=== PATIENT | male | born 1940 | race Caucasian/White ===

== ENCOUNTER 2019-12-15 07:30 | Outpatient (CLI) | payer MEDICARE, SELFPAY ==
--- NOTE | ~2019-12-15 | CT_ITS ---
EXAMINATION: CT abdomen pelvis w con INDICATION: Prostate cancer TECHNIQUE: Computed tomographic images of the abdomen and pelvis were obtained after the administrati on of 100 cc of Omnipaque 350 intravenous contrast. The dose-length product (DLP) was 600.93 mGy-cm. Automated exposure control and iterative reconstruction technique were employed. COMPARISON: None available FINDINGS: Minimal dependent atelectasis is present in the lung bases. The heart size is normal. The g allbladder is surgically absent. There is mild enlargement of the common bile duct and central intrah epatic ducts which is likely due to post cholecystectomy state. Cysts of the liver measure up to 3.0 cm in the left hepatic lobe. The spleen, pancreas, and adrenal glands are normal. Hypoattenuating les ions in the kidneys, measuring up to 5 mm in the left kidney, are too small to characterize but likel y represent cysts. There are increase in number of retroperitoneal lymph nodes which are borderline i n size measuring up to 10 mm. There is no free intraperitoneal gas or evidence of bowel obstruction. Colonic diverticulosis is present without evidence of diverticulitis. There is severe lumbar spondylo sis. There are hemangiomas of the L1 and L4 vertebral bodies. There is anterior fusion of L1-L3. Mild circumferential thickening of the urinary bladder likely reflects chronic outlet obstruction. IMPRESSION: 1. Increase in number of borderline size retroperitoneal lymph nodes. Reviewed, dictated and finalized at location B.
--- NOTE | ~2019-12-15 | NM_ITS ---
EXAMINATION: NM bone scan whole body DATE: 12/15/2019 11:57 INDICATION: Prostate cancer TECHNIQUE: 26.481 mCi Tc-99m HDP was administered intravenously. Delayed whole-body scintigrams were obtained. COMPARISON: Chest radiograph and CT abdomen and pelvis dated 12/15/2019 FINDINGS: There are scattered periventricular foci of moderate to intense bone uptake, many and atypical positi ons including at the distal left fibula, proximal right femoral diaphysis, intertrochanteric region o f the left femur, the right innominate bone and left scapula which are suspicious for metastatic dise ase. There appears be associated sclerosis and periosteal reaction at the left coracoid process on th e chest radiograph and there is subtle patchy sclerosis and periosteal reaction along the left innomi zofia bone. There are few additional foci of increased uptake along the spine, unclear whether this re presents additional metastatic disease or activity related to severe spondylosis is evident on both r adiographs and CT. Increased uptake at the right carpus, medial compartment of the left knee at the r ight forefoot and more typical pattern of degenerative osteoarthritis. IMPRESSION: 1. Multiple scattered foci of increased bone uptake in atypical locations, several with coarse chroni c subtle sclerotic lesions or periosteal reaction, consistent with metastatic disease. Reviewed, dictated and finalized at location A. IMPRESSION: 1. Multiple scattered foci of increased bone uptake in atypical locations, wai ral with coarse chronic subtle sclerotic lesions or periosteal reaction, consis tent with metastatic disease.
--- NOTE | ~2019-12-15 | XR_ITS ---
EXAMINATION: XR chest 2V DATE: 12/15/2019 08:04 INDICATION: Prostate cancer TECHNIQUE: PA and lateral views of the chest are obtained. COMPARISON: 07/28/2016, 02/03/2016 FINDINGS: The lungs are free of acute opacities. There is no pleural effusion or pneumothorax. Median sternotomy wires and mediastinal surgical clips are seen, likely from prior coronary artery bypass g rafting. The heart size is normal. There is moderate thoracic spondylosis. Surgical clips in the righ t upper quadrant are likely from prior cholecystectomy. IMPRESSION: 1. No acute cardiopulmonary abnormality. Reviewed, dictated and finalized at location B.
[2019-12-15 08:18] LABS: Estimated Glomerular Filt Rate > 60
== END 2019-12-15 07:31 | disposition home or self-care (01) ==
PROVIDERS: PCP Internal Medicine; Visit Provider Urology
DX: C61 Malignant neoplasm of prostate (principal); M89.9 Disorder of bone, unspecified; R59.0 Localized enlarged lymph nodes
CPT/HCPCS: 36415; 71046; 74177; 78306; A9561; Q9967

== ENCOUNTER 2020-12-04 09:34 | Outpatient (CLI) | payer MEDICARE, SELFPAY ==
--- NOTE | ~2020-12-04 | NM_ITS ---
EXAMINATION: NM bone scan whole body DATE: 12/04/2020 13:40 INDICATION: Prostate cancer TECHNIQUE: 26.4 mCi Tc-99m HDP was administered intravenously. Delayed whole-body scintigrams were o btained. COMPARISON: CT abdomen and pelvis dated 12/04/2020 FINDINGS: There are multiple foci of increased FDG bone uptake in atypical locations including several with cor responding sclerosis on the prior CT suspicious for metastatic disease. The latter include at the int ertrochanteric proximal left femur, bilateral iliac wings, left more prominent than right and at the right side of the cervical halo. Additional suspicious lesions not included within the field of CT im aging include at the proximal right femoral diaphysis, right coracoid process and distal left fibular diaphysis. 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 Additional li antelmo degenerative uptake at the bilateral acromioclavicular joints, at the right elbow and and at bot h knees most prominent at the medial compartment of the left knee. IMPRESSION: 1. Multiple foci of increased uptake, some likely degenerative in etiology but several with correspon ding suspicious sclerotic lesions on CT consistent with metastatic prostate cancer. Reviewed, dictated and finalized at location B. IMPRESSION: 1. Multiple foci of increased uptake, some likely degenerative in etiology but several with corresponding suspicious sclerotic lesions on CT consistent with m etastatic prostate cancer.
--- NOTE | ~2020-12-04 | CT_ITS ---
EXAMINATION: CT abdomen pelvis w con DATE: 12/04/2020 10:15 INDICATION: Prostate cancer TECHNIQUE: Computed tomography (CT) of the abdomen and pelvis was performed with 100 mL Omnipaque-350 intravenous contrast. Automated exposure control and iterative reconstruction technique were employe d. The dose-length product was 803.55 mGy-cm. COMPARISON: None FINDINGS: Mild bronchiectasis and minimal dependent atelectasis in the bilateral lower lobes. Heart size is nor mal. Atherosclerotic coronary artery calcification. Median sternotomy wires and changes of prior shanique nary artery bypass grafting. No pericardial or pleural effusion. Multiple well-defined low-attenuatio n hepatic cysts the largest measuring 2.9 cm in the left hepatic lobe. Cholecystectomy clips the gall bladder fossa. Spleen, pancreas, bilateral adrenal glands and right kidney are normal. 4 mm matter lo w-attenuation cyst at the lower pole of the left kidney. There is mild colonic diverticulosis with a sigmoid predominance. There is no adjacent inflammatory change to suggest diverticulitis. No abnorma l bowel wall thickening or obstruction. Bladder is normal. No free intraperitoneal gas or fluid. Decr ease in size of the previous and mildly prominent abdominal retroperitoneal lymph nodes. No pathologi miller enlarged abdominal or pelvic lymphadenopathy. Small bilateral fat-containing inguinal hernias. Severe lumbar and lower thoracic spondylosis including anterior fusion at L1-L3.. Lucent hemangiomas with thickened internal trabecula at L1 and L4. There are multiple suspicious sclerotic lesions in th e bilateral iliac bones as well as at the cephalad aspect of the right sacral ala and intertrochanter ic left femur which are concerning for metastatic prostate cancer. IMPRESSION: 1. Several sclerotic bone lesions in the pelvis and proximal left femur suspicious for metastatic pro state cancer. 2. Mild diverticulosis. 3. Small bilateral fat-containing inguinal hernias. Reviewed, dictated and finalized at location B. IMPRESSION: 1. Several sclerotic bone lesions in the pelvis and proximal left femur suspici ous for metastatic prostate cancer. 2. Mild diverticulosis. 3. Small bilateral fat-containing inguinal hernias.
[2020-12-04 10:09] LABS: Estimated Glomerular Filt Rate > 60
== END 2020-12-04 09:35 | disposition home or self-care (01) ==
PROVIDERS: PCP Internal Medicine; Visit Provider Urology
DX: C61 Malignant neoplasm of prostate (principal); K57.30 Diverticulosis of large intestine without perforation or abscess without bleeding; K40.20 Bilateral inguinal hernia, without obstruction or gangrene, not specified as recurrent
CPT/HCPCS: 74177; 78306; A9561; Q9967

== ENCOUNTER 2022-06-19 14:08 | Emergency (ER) | payer MEDICARE, SELFPAY ==
--- NOTE | ~2022-06-19 | XR_ITS ---
EXAMINATION: XR chest 2V DATE: 06/19/2022 14:44 INDICATION: Cough. TECHNIQUE: Frontal and lateral views of the chest were obtained. COMPARISON: Chest 2 views 12/15/2019 FINDINGS: The chest demonstrates clear lungs without pneumonia, pleural effusion, or pneumothorax. Th e heart size is normal. Median sternotomy wires and mediastinal surgical clips are seen, likely from prior coronary artery bypass grafting. IMPRESSION: 1. No acute cardiopulmonary disease. Reviewed, dictated and finalized at location A.
[2022-06-19 14:17] VITALS: BP 142/68; PULSE 65; RESP 18; TEMP 36.5; O2SAT 99
--- NOTE | 2022-06-19 14:19 | ED.URI ---
HPI - URI/Sore Throat General Chief Complaint: Upper Respiratory Infection Stated Complaint: COUGH Time Seen by Provider: 06/19/22 14:14 Source: patient and RN notes reviewed Mode of arrival: ambulatory Limitations: no limitations History of Present Illness HPI Narrative: 82-year-old male presents to the [facility] with complaints of a cough for 1 week. No treatment prior to arrival. Patient denies any shortness of breath. Reports that when he does cough he has a burning sensation in his throat and after sternum area. Denies any chest pain. No fevers. Denies abdominal pain, nausea or vomiting. Has a history of postnasal drip. Has a history of allergies. Denies treatment prior to arrival MD elicited complaint: cough Related Data Home Medications Medication Instructions Recorded Confirmed aspirin 81 mg tablet,delayed 81 mg PO DAILY 09/09/19 06/19/22 release metoprolol tartrate 25 mg tablet 25 mg PO DAILY 09/09/19 06/19/22 multivitamin 1 tablet PO DAILY 09/09/19 06/19/22 omega-3 fatty acids 1,000 mg 1,000 mg PO DAILY 09/09/19 06/19/22 capsule (Fish Oil Concentrate) omeprazole 20 mg capsule,delayed 20 mg PO DAILY 09/09/19 06/19/22 release abiraterone 250 mg tablet 250 mg PO USEASDIRECTD 06/19/22 06/19/22 celecoxib 200 mg capsule 200 mg PO DAILY 06/19/22 06/19/22 cyclosporine 0.05 % eye drops in a 1 drp EACH EYE BID 06/19/22 06/19/22 dropperette (Restasis) furosemide 20 mg tablet 20 mg PO DAILY 06/19/22 06/19/22 leuprolide acetate (6 month) 45 mg See Rx Instructions .Route .COMPLEX 06/19/22 06/19/22 (6 month) subcutaneous syringe (Eligard) melatonin 5 mg capsule 5 mg PO DAILY 06/19/22 06/19/22 niacin 750 mg tablet,extended 750 mg PO HS 06/19/22 06/19/22 release (Endur-Acin) prednisone 5 mg tablet 5 mg PO DAILY 06/19/22 06/19/22 Allergies Allergy/AdvReac Type Severity Reaction Status Date / Time Trjekrv-PHQ-BnC Reductase Allergy Unknown Unknown Verified 06/19/22 14:15 Inhibitor [Dexymiv-Fwn-Dmk Reductase Inhibitor] Review of Systems Review of Systems: All systems reviewed & are unremarkable except as noted in HPI and below Constitutional: Constitutional: Reports no additional constitutional complaints, Denies chills and Denies fever(s) Eyes: Eyes: Reports no additional eye complaints ENT: Reports system reviewed and no additional complaints, except as documented Cardiovascular: Cardiovascular: Reports no additional cardiovascular complaints Respiratory: Respiratory: Reports as per HPI, Denies chest congestion, Reports cough, Denies dyspnea and Denies wheezing Gastrointestinal: Gastrointestinal: Reports no additional gastrointestinal complaints Musculoskeletal: Musculoskeletal: Reports no additional musculoskeletal complaints Integumentary/Breasts: Skin/Breast: Reports system reviewed and no additional complaints, except as docu Neurologic: Reports system reviewed and no additional complaints, except as documented Psychiatric: Psychiatric: Reports no additional psychiatric complaints Allergic/Immunologic: Allergic/Immunologic: Reports no additional allergic/immunologic complaints PMFSH Past Medical History Medical History Arthritis Avulsion fracture of ankle Dizziness Heart attack Olecranon bursitis, left elbow Skin cancer Vision loss Surgical History Surgical History H/O heart artery stent Family History Family History Other Heart disease Social History Social History Smoking status: Never smoker Alcohol intake: current Substance use: unknown Gender identity (if verbalized by the patient): Male Spiritual care concerns: No Comments At the time of my signature, I reviewed and agree with the nursing past medical, surgical, social,
[2022-06-19 14:26] VITALS: BP 142/68; PULSE 65; RESP 18; TEMP 36.5; O2SAT 99
== END 2022-06-19 15:16 | disposition home or self-care (01) ==
PROVIDERS: Emergency Provider Nurse Practitioner
DX: J40 Bronchitis, not specified as acute or chronic (principal); M19.90 Unspecified osteoarthritis, unspecified site; I25.2 Old myocardial infarction; Z85.828 Personal history of other malignant neoplasm of skin; Z79.82 Long term (current) use of aspirin
CPT/HCPCS: 71046; 99213; G0463

== ENCOUNTER 2022-07-01 11:03 | Outpatient (CLI) | payer MEDICARE, SELFPAY ==
[2022-07-01 19:42] LABS: Alanine Aminotransferase 27 U/L (6-50); Albumin Level 4.2 g/dL (3.5-5.1); Alkaline Phosphatase 109 U/L (38-126); Anion Gap 10 mmol/L (8-16); Aspartate Amino Transferase 32 U/L (17-59); Blood Urea Nitrogen 28 mg/dL (9-20); Calcium 8.9 mg/dL (8.4-10.2); Carbon Dioxide 24 mmol/L (22-30); Chloride 104 mmol/L (98-107); Cholesterol 190 mg/dL (0-200); Estimated Glomerular Filt Rate > 60; Glucose 107 mg/dL (65-110); HDL Direct 48 mg/dL; Potassium 4.2 mmol/L (3.4-5.0); Sodium 138 mmol/L (137-145); Triglycerides 366 mg/dL (<150)
[2022-07-01 21:40] LABS: LDL Cholesterol Direct < 30 mg/dL
== END 2022-07-01 11:04 | disposition home or self-care (01) ==
LOC: ANHGOSHLAB 11:05
PROVIDERS: PCP Family Medicine; Visit Provider Family Medicine
DX: E78.5 Hyperlipidemia, unspecified (principal); Z13.228 Encounter for screening for other metabolic disorders
CPT/HCPCS: 36415; 80053; 80061

== ENCOUNTER 2022-09-01 13:17 | Outpatient (CLI) | payer MEDICARE, SELFPAY ==
--- NOTE | ~2022-09-01 | DEXA_ITS ---
Bone Density Report Name: EVELIA CARTY Age: 82 Sex: Male Ethnicity: White Date of : 1940 Indication: screening for osteoporosis; height loss; history of glucocorticoids; prior fracture; cancer; Referring Provider: GERONIMO COOPER Study: Bone densitometry was performed. Exam Date: September 01, 2022 Accession number: [id number] Bone Density: Region BMD T-score Z-score Classification AP Spine(L1-L4) 1.216 1.1 2.4 Normal Femoral Neck (Left) 0.629 -2.2 -0.5 Osteopenia Total Hip (Left) 0.790 -1.6 -0.4 Osteopenia World Health Organization criteria for BMD impression classify patients as: Normal (T-score at or above -1.0), Osteopenia (T-score between -1.0 and -2.5), or Osteoporosis (T-score at or below -2.5). 10-year Fracture Risk: FRAX not reported because: Prior hip or vertebral fracture Clinical Information Provided by Patient: Have had a previous hip or vertebral fracture Has had a low trauma fracture Has taken Glucocorticoids Has the following medical conditions: Cancer Patient maximum height was 72 Impression: The patient has low bone mass, based on the Left Femoral Neck T-score. The patient has risk factors, including: previous fracture, history of glucocorticoid therapy. Discussion: INCREASED RISK OF FRACTURE DUE TO HISTORY OF LOW TRAUMA FRACTURE. The patient's previous fracture puts the patient at high risk of a future fracture. In untreated patients, the risk of osteoporotic fracture increases approximately two-fold for each 1.0 SD decrease in T-score. Low bone density is not the only risk factor for fracture; also consider factors such as patient's age, frailty or poor health, risk of falling, risk of injury, previous osteoporotic fracture, family history of osteoporosis, cigarette smoking, low body weight, etc. Not everyone with a low trauma fracture has osteoporosis; osteomalacia and other metabolic bone disorders should also be considered. Patients who have osteoporosis should be evaluated for specific diseases and conditions (secondary causes) that may cause or contribute to bone loss and fracture risk. National Osteoporosis Foundation (NOF) recommends pharmacologic intervention for patients with a prior low trauma hip or vertebral fracture regardless of BMD T-score. The patient should follow a healthful lifestyle (good nutrition with adequate calcium and vitamin D, and appropriate weight-bearing exercise). Follow-Up: Consider a repeat BMD and Vertebral Fracture Assessment (VFA) exam in 2 years or sooner if medically necessary, to reassess this patient's status. Reported by: OPAL on 09/01/2022 2:03:00 PM. Reviewed, dictated and finalized at location AXiomara HARPER
== END 2022-09-01 13:18 | disposition home or self-care (01) ==
LOC: ANHIMG 13:20
PROVIDERS: PCP Family Medicine; Visit Provider Urology
DX: C61 Malignant neoplasm of prostate (principal); M85.852 Other specified disorders of bone density and structure, left thigh
CPT/HCPCS: 77080

== ENCOUNTER 2022-12-01 11:49 | Outpatient (CLI) | payer MEDICARE, SELFPAY ==
--- NOTE | ~2022-12-01 | PE_ITS ---
EXAMINATION: PET_PETPSMAST_PT DATE: 12/01/2022 14:40 INDICATION: Rising PSA levels after treatment for malignant prostate cancer. TECHNIQUE: 9.924 mCi of pipflufolastat F-18 (18-F-DCFPyL) was administered i.v. Low dose computed to mography (CT) images were acquired from the base of the brain to the base of the brain to the proxima l thighs for attenuation correction and anatomic localization. Positron emission tomography (PET) sanjay ges were acquired in the same distribution beginning 1 hour and 45 minutes after injection. Images in cluding fused PET/CT images were reconstructed in axial, coronal, and sagittal planes. Automated expo sure control technique was employed. The dose-length product was 580.45mGy-cm. COMPARISON: CT abdomen pelvis dated 12/04/2020 FINDINGS: Head/neck: Typical pattern of symmetric physiologic increased activity in the lacrimal, parotid and submandibula r glands as well as along the mucosa of the nasal and oral cavities, the lupillo-, naso- and hypopharynx. Approximately 1 cm focus of increased FDG uptake with maximal SUV of 13.2 within the right masseter muscle without radiologic correlate. No pathologically enlarged cervical lymphadenopathy or other mikaela picious foci of increased uptake in the visualized head or neck. Chest: Lungs are clear with no pulmonary nodules, pneumonia, pulmonary edema or pleural effusion. Heart size is normal. Atherosclerotic coronary artery calcification unchanged prior median sternotomy and coron jessica artery bypass grafting. No pericardial effusion. Ectatic ascending thoracic aorta measuring up to 4.3 cm in maximal diameter. No pathologically enlarged 0r PSMA avid thoracic lymphadenopathy. Expans ile FDG avid lytic lesion filling the right coracoid process with maximal severe 50.4. T4 and T6 benedicto ngiomas. Small focus of mild PSMA uptake associated with a small sclerotic lesion at the posterolater al left fifth rib. Additional similar small subtle focus of minimal uptake with maximal SUV of 1.6 at the anterolateral left third rib without radiologic correlate. Abdomen/pelvis/proximal thighs: Physiologic renal accumulation and excretion of activity in the kidneys, bladder and along portions o f ureters. Normal degree and slightly heterogenous pattern of increased uptake throughout the liver w ithout radiologic correlate or dominant PSMA avid lesion. Typical mild diffuse uptake throughout the spleen but with 2 approximately 1 cm foci of more prominent activity with maximal SUV of 8.8 and 6.9 which are without radiologic correlate on CT imaging. Cholecystectomy clips at the gallbladder fossa. The pancreas and bilateral adrenal glands are normal. Moderate uptake scattered throughout the bowel s with typical duodenal and proximal jejeunal predominance and without radiologic correlate, also lik segundo physiologic. No other abnormal foci of increased uptake or pathologically enlarged lymphadenopath y in the abdomen, pelvis or proximal thighs. There is streak artifact in the pelvis surrounding a rig ht total hip arthroplasty. L1 and L4 hemangiomas. Mild uptake at the right at L2 with maximal SUV of 3.9 which is without radiologic correlate on CT. Asymmetric increased uptake at the left iliac wing w ith maximal SUV of 7.5 and with corresponding patchy sclerosis on CT imaging. There is additional mil d uptake at the right sacral ala along the anterolateral margin of the right S1 neural foramen with m aximal SUV of 2.3 and at the proximal femurs on the left at the posterior junction of the neck and gr eater trochanter with maximal SUV of 4.4 and on the right lung the anterior margin of the tip of the femoral component with maximal SUV of 3.0. Each of these bone lesions demonstrates corresponding incr eased uptake on the prior bone scan suspicious for metastatic disease. IMPRESSION: 1. Increased uptake associated with multiple bone lesions which appear to have been present and descr
== END 2022-12-01 11:50 | disposition home or self-care (01) ==
PROVIDERS: PCP Family Medicine; Visit Provider Nurse Practitioner Adult Health
DX: R97.21 Rising PSA following treatment for malignant neoplasm of prostate (principal)
CPT/HCPCS: 78815; A9595

== ENCOUNTER 2023-07-21 08:12 | Outpatient (CLI) | payer MEDICARE, SELFPAY ==
[2023-07-21 18:37] LABS: Alanine Aminotransferase 24 U/L (6-50); Albumin Level 3.8 g/dL (3.5-5.1); Alkaline Phosphatase 57 U/L (38-126); Anion Gap 1 mmol/L (8-16); Aspartate Amino Transferase 50 U/L (17-59); Blood Urea Nitrogen 18 mg/dL (9-20); Calcium 8.9 mg/dL (8.4-10.2); Carbon Dioxide 34 mmol/L (22-30); Chloride 105 mmol/L (98-107); Cholesterol 160 mg/dL (0-200); Estimated Glomerular Filt Rate > 60; Glucose 100 mg/dL (65-110); HDL Direct 43 mg/dL; Potassium 3.6 mmol/L (3.4-5.0); Sodium 140 mmol/L (137-145); Triglycerides 240 mg/dL (<150)
[2023-07-21 18:48] LABS: LDL Cholesterol Direct 32 mg/dL
[2023-07-21 19:58] LABS: Hematocrit 42.9 % (42.0-52.0); Hemoglobin 13.6 g/dL (14.0-18.0); Immature Platelet Fraction Pct 10.3 % (0.9-11.2); Mean Corpuscular HGB Conc 31.7 g/dl (32-36); Mean Corpuscular Hemoglobin 30.4 pg (26-34); Mean Platelet Volume 11.5 fl (7.4-10.4); Platelet Count Result 91 k/mm3 (150-375); Red Blood Count 4.47 M/mm3 (4.6-6.20); Red Cell Distribution Width 14.2 % (11.5-14.5); White Blood Count 3.1 K/mm3 (4.5-10.0)
[2023-07-21 20:26] LABS: Total Cells Counted 100
[2023-07-21 20:27] LABS: Band Neutrophils Percent 3 % (0-6); Eosinophils Absolute Manual 0.03 K/mm3 (0.02-0.5); Eosinophils Percent Manual 1 % (0-4); Lymphocytes Absolute Manual 1.17 K/mm3 (1.1-4.5); Lymphocytes Percent Manual 38 % (18-44); Metamyelocytes Percent 2 %; Monocytes Absolute Manual 0.12 K/mm3 (0.1-0.90); Monocytes Percent Manual 4 % (3-9); Neutrophils Percent Manual 52 % (46-73); Smudge Cells FEW
[2023-07-21 20:28] LABS: Atypical Lymphocytes Present; Platelet Estimate Decreased (Adequate); Schistocytes None Seen (NORMAL)
== END 2023-07-21 08:13 | disposition home or self-care (01) ==
LOC: ANHGOSHLAB 08:13
PROVIDERS: PCP Family Medicine; Visit Provider Family Medicine
DX: E78.2 Mixed hyperlipidemia (principal); Z13.220 Encounter for screening for lipoid disorders; Z13.228 Encounter for screening for other metabolic disorders; R53.83 Other fatigue
CPT/HCPCS: 36415; 80053; 80061; 85025; 85055

== ENCOUNTER 2024-02-21 08:44 | Emergency (ER) | payer MEDICARE, SELFPAY ==
--- NOTE | 2024-02-21 08:47 | ED.GENADULT ---
HPI - General Adult General Chief complaint: Upper Respiratory Infection Stated complaint: NASAL CONGESTION/COUGH/TICKLE IN BACK OF MOUTH Time Seen by Provider: 02/21/24 08:47 Source: patient Mode of arrival: ambulatory Limitations: no limitations History of Present Illness HPI narrative: 83-year-old male patient presents to the [facility] with complaints of cold symptoms x4 days. Patient states that he has had some watery eyes sometimes itching eyes and redness to the eyes. Patient states he has had a lot of drainage to the back of the throat, congestion and runny nose. Patient states slight cough but more so when he lays down at night. Denies any ear pain, sore throat. Denies chest pain, shortness of breath. Denies abdominal pain, nausea, vomiting or diarrhea. Denies fevers or body aches or chills. Patient states he has taken some [id number] Tylenol and mucus next 1 or 2 times since symptoms began. Patient states he does take Claritin daily. Related Data Home Medications Medication Instructions Recorded Confirmed aspirin 81 mg tablet,delayed 81 mg PO DAILY 09/09/19 02/21/24 release multivitamin 1 tablet PO DAILY 09/09/19 02/21/24 omega-3 fatty acids 1,000 mg 1,000 mg PO DAILY 09/09/19 02/21/24 capsule (Fish Oil Concentrate) abiraterone 250 mg tablet 250 mg PO USEASDIRECTD 06/19/22 02/21/24 melatonin 5 mg capsule 5 mg PO DAILY 06/19/22 02/21/24 niacin 750 mg tablet,extended 750 mg PO HS 06/19/22 02/21/24 release (Endur-Acin) prednisone 5 mg tablet 5 mg PO DAILY 06/19/22 02/21/24 leuprolide acetate (6 month) 45 mg See Rx Instructions .Route .COMPLEX 11/11/22 02/21/24 (6 month) subcutaneous syringe (Camera360) isosorbide mononitrate 60 mg 60 mg PO DAILY 10/30/23 02/21/24 tablet,extended release 24 hr metoprolol tartrate 25 mg tablet 50 mg PO DAILY 10/30/23 02/21/24 latanoprost 0.005 % eye drops 1 drp EACH EYE DAILY 11/10/23 02/21/24 Allergies Allergy/AdvReac Type Severity Reaction Status Date / Time Xjgirki-CSA-DlI Reductase Allergy Unknown Unknown Verified 02/21/24 08:57 Inhibitor [Codziwy-Obo-Phg Reductase Inhibitor] Review of Systems Review of Systems: CONSTITUTIONAL: Denies fever, chills, or sweats. EYES: Denies visual changes, redness, or discharge. ENT: Positive rhinorrhea, congestion, denies sore throat, or otalgia. CARDIOVASCULAR: Denies chest pain, palpitations, or edema. RESPIRATORY: positive mild cough denies dyspnea. GASTROINTESTINAL: Denies abdominal pain, nausea, vomiting, or diarrhea. GENITOURINARY: Denies dysuria or hematuria. SKIN: Denies rash or itching. MUSCULOSKELETAL: Denies back pain, joint pain, or myalgia. NEUROLOGIC: Denies headache, numbness, or weakness. PSYCHIATRIC: Denies anxiety or depression. [facility] Past Medical History Medical History Arthritis Avulsion fracture of ankle CAD (coronary artery disease) Dizziness Heart attack IBS (irritable bowel syndrome) Olecranon bursitis, left elbow Prostate cancer Skin cancer Vision loss Surgical History Surgical History H/O heart artery stent (~2001) History of cholecystectomy (~2009) History of hip replacement (~10/2021) Hx of tonsillectomy (Unknown) Family History Family History Sibling Cancer Heart disease Mother Heart disease Father Heart disease Social History Social History Smoking status: Never smoker Alcohol intake: current Substance use: unknown Living arrangements: with family Additional living arrangements comments: Spouse Occupation/Education: retired Gender identity (if verbalized by the patient): Male Spiritual care concerns: No Comments At the time of my signature I agree with nursing past medical history, surgical, social, and
[2024-02-21 09:01] VITALS: BP 107/63; PULSE 67; RESP 18; TEMP 36.8; O2SAT 98
== END 2024-02-21 09:19 | disposition home or self-care (01) ==
PROVIDERS: Emergency Provider Nurse Practitioner Family; PCP Family Medicine
DX: T78.40XA Allergy, unspecified, initial encounter (principal); M19.90 Unspecified osteoarthritis, unspecified site; I25.10 Atherosclerotic heart disease of native coronary artery without angina pectoris; I25.2 Old myocardial infarction; Z85.828 Personal history of other malignant neoplasm of skin; Z85.46 Personal history of malignant neoplasm of prostate; Z95.5 Presence of coronary angioplasty implant and graft; Z79.82 Long term (current) use of aspirin
CPT/HCPCS: 99213; G0463

== ENCOUNTER 2024-03-11 07:25 | Outpatient (CLI) | payer MEDICARE, SELFPAY ==
--- NOTE | ~2024-03-11 | PE_ITS ---
EXAMINATION: PET_PETPSMAST_PT DATE: 03/11/2024 09:47 INDICATION: Prostate cancer TECHNIQUE: 5.559 mCi of Locametz Ga-68(88-Rl-shellmzgzi) was administered i.v. Low dose computed jeremy ography (CT) images were acquired from the base of the brain to the base of the brain to the proximal thighs for attenuation correction and anatomic localization. Positron emission tomography (PET) imag es were acquired in the same distribution beginning 78 minutes after injection. Images including fuse d PET/CT images were reconstructed in axial, coronal, and sagittal planes. Automated exposure control technique was employed. The dose-length product was 1052.07mGy-cm. COMPARISON: 12/01/2022 FINDINGS: Head/neck: Typical pattern of symmetric physiologic increased activity in the lacrimal, parotid and submandibula r glands as well as along the mucosa of the nasal and oral cavities, pharynx and hypopharynx. No path ologically enlarged cervical lymphadenopathy or suspicious foci of increased uptake in the visualized head or neck. Chest: Mild dependent atelectasis in the lungs. No suspicious pulmonary nodules, pneumonia or pleural effusi on. Mild cardiomegaly. Atherosclerotic coronary artery calcification. Status post median sternotomy a nd coronary artery bypass grafting. Thoracic aorta is normal in caliber. No pathologically enlarged o r PSMA avid thoracic lymphadenopathy. Abdomen/pelvis/proximal thighs: Physiologic renal accumulation and excretion of activity in the kidneys, bladder and along portions o f ureters. No evident activity in the region of the mildly enlarged prostate which measures 4.1 x 3.3 cm. The deep pelvis including the region of the bladder and prostate is however partially obscured b y dense metallic streak artifact from a right total hip arthroplasty. Cholecystectomy clips the gallb ladder fossa. Photopenic defects associated with a few low density hepatic cysts the largest in the l eft hepatic lobe measuring 3 cm. Normal degree and slightly heterogenous pattern of increased uptake throughout the liver without radiologic correlate or dominant PSMA avid lesion. The 2 foci of increas ed PSMA uptake previously seen in the spleen have markedly decreased, now barely discernible above th e splenic background consistent with response to treatment of metastatic disease. The pancreas and bi lateral adrenal glands are normal. Moderate uptake scattered throughout the bowels with typical duode nal and proximal jejunal predominance and without radiologic correlate, also likely physiologic. No o ther abnormal foci of increased uptake or pathologically enlarged lymphadenopathy in the abdomen, pel vis or proximal thighs. Musculoskeletal: Severe spondylosis in the cervical, thoracic and lumbar spine. There are multiple lucent hemangiomas with thickened internal trabecula patterns involving multiple thoracic and lumbar vertebra which are all without abnormal PSMA uptake. Interval increase in size and amount of osteolysis associated with a a previously 5.8 x 2.7 x 3.0 cm PSMA avid expansile osteolytic mass arising from the right coracoid process which currently measures 6.3 x 4.4 x 4.3 cm expansile. The degree of PSMA uptake is decrease d slightly with decrease in the maximal SUV from 50.4 to 33.2. This is increased in size The prior mi ld FDG uptake associated with a small sclerotic lesion in the posterior left fifth rib has resolved c onsistent with likely response to treatment of metastatic disease. Aside from the region of PSMA avid and expansile lytic lesion at the right coracoid process there are no other suspicious lytic, blasti c or PSMA avid bone lesions. IMPRESSION: 1. Likely mixed response to treatment of metastatic prostate cancer with increased in size and progre ssive osteolysis but slight decrease in still relatively prominent PSMA uptake associated with an exp ansile osteolytic mass at the right coracoid process and with significa
== END 2024-03-11 07:26 | disposition home or self-care (01) ==
PROVIDERS: PCP Family Medicine; Visit Provider Urology
DX: C61 Malignant neoplasm of prostate (principal)
CPT/HCPCS: 78815; A9596

== ENCOUNTER 2024-04-19 09:01 | Outpatient (CLI) | payer MEDICARE, SELFPAY ==
--- NOTE | ~2024-04-19 | CT_ITS ---
CT sinus wo con Ordering provider: Joselito Ocampo M.D. History: . acute recurrent sinusitis . Comparison: None. Technique: Thin slice Scans CT of the paranasal sinuses was performed with coronal and sagittal refor matted images. No IV contrast. . Automated exposure control and iterative reconstruction technique w ere employed. The dose-length product was 303.09 mGy-cm. Findings: NASAL SEPTUM: Mild right nasal septal deviation. OSTEOMEATAL UNITS: Obliterated bilaterally. NASAL TURBINATES AND NASOPHARYNX: Normal. Bilateral risa bullosa. PARANASAL SINUSES: Bilateral maxillary sinus disease. Left sphenoid sinus disease. VISUALIZED MASTOIDS: Normal as visualized. BONES: Normal. SUPERFICIAL SOFT TISSUES/VISUALIZED BRAIN PARENCHYMA: Normal. IMPRESSION: Bilateral maxillary sinus disease. Left sphenoid sinus disease. Obliterated both ostiomeatal complexe s. Mild right nasal. Reviewed, dictated and finalized at location A. IMPRESSION: Bilateral maxillary sinus disease. Left sphenoid sinus disease. Obliterated bot h ostiomeatal complexes. Mild right nasal.
== END 2024-04-19 09:02 | disposition home or self-care (01) ==
PROVIDERS: PCP Family Medicine; Visit Provider Otolaryngology
DX: J32.9 Chronic sinusitis, unspecified (principal)
CPT/HCPCS: 70486

== ENCOUNTER 2024-05-05 07:58 | Outpatient (CLI) | payer MEDICARE, SELFPAY ==
[2024-05-05 13:27] LABS: Hematocrit 41.8 % (42.0-52.0); Hemoglobin 13.3 g/dL (14.0-18.0); Immature Platelet Fraction Pct 8.8 % (0.9-11.2); Mean Corpuscular HGB Conc 31.8 g/dl (32-36); Mean Corpuscular Hemoglobin 30.9 pg (26-34); Mean Platelet Volume 11.4 fl (7.4-10.4); Platelet Count Result 86 k/mm3 (150-375); Red Blood Count 4.31 M/mm3 (4.6-6.20); Red Cell Distribution Width 14.6 % (11.5-14.5); White Blood Count 3.9 K/mm3 (4.5-10.0)
[2024-05-05 13:54] LABS: Alanine Aminotransferase 24 U/L (6-50); Albumin Level 3.9 g/dL (3.5-5.1); Alkaline Phosphatase 74 U/L (38-126); Anion Gap 9 mmol/L (4-12); Aspartate Amino Transferase 67 U/L (17-59); Bilirubin,Total 0.9 mg/dL (0.2-1.3); Blood Urea Nitrogen 17 mg/dL (9-20); Calcium 8.8 mg/dL (8.4-10.2); Carbon Dioxide 29 mmol/L (22-30); Chloride 103 mmol/L (98-107); Cholesterol 132 mg/dL (0-200); Estimated Glomerular Filt Rate > 60; Glucose 97 mg/dL (65-110); HDL Direct 45 mg/dL; Potassium 3.5 mmol/L (3.4-5.0); Sodium 141 mmol/L (137-145); Triglycerides 166 mg/dL (<150)
[2024-05-05 14:08] LABS: LDL Cholesterol Direct < 30 mg/dL
[2024-05-05 14:13] LABS: Band Neutrophils Percent 1 % (0-6); Eosinophils Absolute Manual 0.03 K/mm3 (0.02-0.50); Eosinophils Percent Manual 1 % (0-4); Lymphocytes Absolute Manual 1.48 K/mm3 (1.1-4.5); Lymphocytes Percent Manual 38 % (18-44); Monocytes Absolute Manual 0.15 K/mm3 (0.1-0.90); Monocytes Percent Manual 4 % (3-9); Neutrophils Absolute Manual 2.22 K/mm3 (1.3-6.7); Neutrophils Percent Manual 56 % (46-73); Total Cells Counted 100
[2024-05-05 14:14] LABS: Atypical Lymphocytes Present; Platelet Estimate Decreased (Adequate); Schistocytes None Seen
== END 2024-05-05 07:59 | disposition home or self-care (01) ==
LOC: ANHGOSHLAB 07:59
PROVIDERS: PCP Family Medicine; Visit Provider Family Medicine
DX: Z13.228 Encounter for screening for other metabolic disorders (principal); E78.5 Hyperlipidemia, unspecified; I10 Essential (primary) hypertension; R53.83 Other fatigue
CPT/HCPCS: 36415; 80053; 80061; 85025; 85055

== ENCOUNTER 2024-12-22 07:52 | Outpatient (CLI) | payer MEDICARE, SELFPAY ==
--- OUTSIDE RECORDS SUMMARY | 2024-12-22 07:58 | XMS_ITS | Clinical Summary ---
Author Organization [facility] Address [address] [place] [address] Care Team Providers Care Chaplain Resident Name Role Phone Unavailable Primary Care Provider Unavailabl e Social History Tobacco Use Types Packs/Day Years Used Date Smoking Tobacco: Never Assessed Sex and Gender Information Value Date Recorded Sex Assigned at Not on file Legal Sex Male 7:11 PM CDT Gender Identity Not on file Sexual Orientation Not on file Plan of Treatment Health Maintenance Due Date Last Done Comments DTaP, Tdap and Td Vaccines ( 1 - Tdap) 1957 Zoster Vaccines (1 of 2) 1988 Pneumococcal Vaccine: 65+ Ye ars (1 of 1 - PCV) 2003 RSV Immunization or 60+ Years (1 - 1-dose 75+ series) 2013 COVID-19 Vaccine ( - 2023-2 5 season) 2024 Influenza Adult (#1) 2024 Meningococcal B Vaccine Aged Out No l onger eligible based on patient's age to complete this topic Meningococcal Vaccine Aged Out No ansley fiordaliza eligible based on patient's age to complete this topic RSV Immunizations Under 20 Months Aged Out No longer eligible based on patient's age to complete this topic
--- OUTSIDE RECORDS SUMMARY | 2024-12-22 07:58 | XMS_ITS | Referral Summary ---
Author Organization [place] [id number] [facility] Address [address] [place] [address] Care Team Providers Care Airport Operations Duty Manager Name Role Phone Solomon Chen Primary Care Provider [phone] Allergies Active Allergy Reactions Criticality Noted Date Comments Usnjovx-Uqq-Nll Reductase Inhibitors Muscle pain Medium 11/05/2021 Medications abiraterone (ZYTIGA) 250 mg tablet 2 Active celecoxib (CeleBREX) 200 mg capsule Take 1 capsule (200 mg total) by mouth 1 Active furosemide (LASIX) 20 mg tablet Take 1 tablet (20 mg total) by mouth every morning 1 Active omeprazole (PriLOSEC) 20 mg capsule Take 1 capsule (20 mg total) by mouth daily 1 Active predniSONE (DELTASONE) 5 mg tablet 2 Active melatonin tablet Take 1 tablet (3 mg total) by mouth nightly Active acetaminophen 500 mg capsuleIndicatio ns:Pain Take 2 capsules (1,000 mg total) by mouth every 6 (six) hours 30 tablet 2 Active Additional Information Patient taking differently:1,000 mg oralAs needed, Indications: Pain, Reported on 09/04/2023 aspirin 81 mg enteric coated tablet Take 1 tablet (81 mg total) by mouth 2 (two) times a day for 14 days 2 Active leuprolide acetate (ELIGARD SUBQ) Inject under the skin every 6 (six) months Active niacin (ENDUR-ACIN ORAL) Take 1,500 mg by mouth daily Active omega-3 fatty acids/fish oil (FISH OIL OMEGA 3-6-9 ORAL) Take 3,000 mg by mouth daily Active prednisoLONE acetate (PRED FORTE) 1 % ophthalmic suspension 3 Active calcium carbonate-vitami n D3 1500 mg (600 mg elemental) -200 units per tablet Take 1 tablet by mouth daily Active isosorbide mononitrate ER (IMDUR) 60 mg 24 hr tablet TAKE 1 TABLET (60 MG TOTAL) BY MOUTH DAILY 90 tablet 1 4 04/18/20 25 Active metoprolol XL (TOPROL-XL) 50 mg extended release tablet TAKE 1 TABLET (50 MG TOTAL) BY MOUTH DAILY 90 tablet 3 4 05/09/20 25 Active latanoprost (XALATAN) 0.005 % ophthalmic solution 4 Active Active Problems Problem Noted Date Diagnosed Date Chest pain 07/30/2023 Hx of CABG 03/04/2022 Closed fracture of neck of right femur 2 Overview (11/05/2021): Added automatically from request for surgery [id number] Closed fracture of neck of right femur, initial encounter 11/05/2021 Skin tear of hand without complication 2 Acute pain due to trauma 11/05/2021 Prostate CA 11/05/2021 CAD (coronary artery disease) 11/05/2021 Immunizations Immunization Administration Dates Next Due Influenza, Trivalent, High D ose, Split, Preservative Free, Intramuscular 06/25/2017 Tdap 11/05/2021 Social History Tobacco Use Types Packs/Day Years Used Date Smoking Tobacco: Never Smokeless Tobacco: Never Tobacco Cessation:Counseling Given: Not Answered AUDIT-C Answer Date Recorded Q1: How often do you have a drink containing alc ohol? Never 11/06/2021 Average Number of Drinks Not on file 022 Frequency of Binge Drinking Not on file 10/22 Sex and Gender Information Value Date Recorded Sex Assigned at Not on file Legal Sex Male 4:44 PM CASING IN LINE SETTER Gender Identity Not on file Sexual Orientation Not on file Last Filed Vital Signs Vital Sign Reading Time Taken Comments Blood Pressure 102/60 06/09/2024 11:20 AM CDT Pulse 52 06/09/2024 11:20 AM CDT Temperature 36.6 C (97.9 F) 11/11/2021 12:43 PM CASING IN LINE SETTER Respiratory Rate 97 04/14/2023 8:54 AM CDT Oxygen Saturation 97% 06/09/2024 11:20 AM CDT Inhaled Oxygen Concentration - - Weight 84.9 kg (187 lb 1.6 oz) 06/09/2024 11:20 AM CDT Height 172.7 cm (5' 8 ) 06/09/2024 11:20 AM CDT Body Mass Index 28.45 06/09/2024 11:20 AM CDT Plan of Treatment Not on file Medical Devices Implanted Type Area Director Group Sales Device Identifier Shelf Expiration Date Model / Serial / Lot [employer] 6191-1-010 Simplex P Radiopaque Full Dose Cement Bone Sterile - [id number] Implanted:Qty: 2 on 11/06/2021 by Titus Obrien MD at [facility] Right: Hip [employer] [id number] 11/19/2023 6191-1-010 / / [employer] [id number] Versys 11mm Cemented Hip Distal Centralizer Stem Pmma Sterile - [id number] Implanted:Qty: 1 on 11/06/2021 by Titus Obrien MD at [facility] Right: Hip [employer] [id number] 05/16/2030 [id number] / / [id number] [employer] [id number] Versys Ld/Fx 12mm 125mm Cemented Hip 38mm Offset Stem Femoral - [id number] Implanted:Qty: 1 on 11/06/2021 by Titus Obrien MD at [facility] Right: Hip [employer] [id number] 12/18/2030 [id number] / / [id number] [employer] [id number] Versys Legacy Unipolar Hip Femoral +7mm 12/14 Adapter Head - [id number] Implanted:Qty: 1 on 11/06/2021 by Titus Obrien MD at [facility] Right: Hip [employer] [id number] 06/22/2031 [id number] / / [id number] [employer] [id number] Versys Legacy 51mm Unipolar Endoprosthetic Hip 09/03 Head Femoral - [id number] Implanted:Qty: 1 on 11/06/2021 by Titus Obrien MD at [facility] Right: Hip [employer] [id number] 11/18/2026 [id number] / / [id number] Insurance MEDICARE [facility] MEDICARE [facility] FINANCIAL MEDICARE [facility] FINANCIAL Advance Directives For more information, please contact: [phone] * Full Code (Latest Code Status on File) Date Activated Date Inactivated Comments 11/05/2021 8:44 PM 11/11/2021 6:24 PM Care Teams Airport Operations Duty Manager Relationship Specialty Start Date End Date Solomon Chen DO PCP - General Family Medicine 09/04/22
--- OUTSIDE RECORDS SUMMARY | 2024-12-22 07:58 | XMS_ITS | Continuity of Care Document ---
Author Organization [facility] Address [address] [place] [address] [address] [place] [address] Phone Care Team Providers Care Park Landscape Architect Name Role Phone [facility] Unavailable Unavail able Kelsey Carrera Unavailable Unavailable Procedures Procedure Date Frames Deluxe Progressive Lens, Hi Index Anti-reflective Coating Tint Photochromatic, Polycarb 0 Tax - Medical Eye Exam & Treatment No Script Fundus Photography W/ Report Refraction Progressive Lens Per Lens Tint Photochromatic, Plastic Tax - Medical Eye Exam & Treatment Refraction Advance Directives Directive Yes / No Effective Date File Name No Information Encounters Encounter Description Practice Location Reason(s) For Visit Diagnoses Date Provider Providers Copied on Encounter [facility], [address] [place] [address] [address], [place], [place], [id number], [place] tel:[phone] [facility] No Information 0 [facility]. [address] [facility], [facility] [address], [place], [place], [id number], [place]. tel:[phone] Referring Provider: Holden Sutton, [address], [place], [address]. tel:[phone] sulting Provider: Kelsey Carrera, [address] [place], [address]. tel:[phone] [facility] [address] [facility] [address], [place], [place], [address], [place] tel:[phone] [facility] No Information 9 Katy Hatch. [facility], [place], [place], [facility], . tel:[phone] Referring Provider: Holden Sutton, [address] [place] [address] [address], [place], [place], [facility]. tel:[phone] [facility], [address] [place] [address] [address], [place], [place], [id number], [place] tel:[phone] [facility] No Information 8 [facility]. [address] [facility], [address], [place], [place], [address], . tel:[phone] Referring Provider: David lema, [address] [place] [address] [address], [place], [place], [facility]. tel:[phone] sulting Provider: Kelsey Carrera, [address] [place], [place], [facility]. tel:[phone] [facility], [address] [place], [place] [address], [place], [place], [address], tel:[phone] [facility] No Information 8 Ritesh Hernandez. [address] [place] [address] [address], [place], [facility], . tel:[phone] Family History Family Member Type Diagnosis Age At Onset No Information Payers Payer name Insurance type Covered constitution party ID Authoriza tion(s) No Information Social History Type Description Quantity Date Captured Comments Sex Male Smoking Status No Information Chief Complaint And Reason For Visit No Information Reason For Referral Reason For Referral No Information History Of Present Illness Encounter Date Complaint History Of Prese nt Illness No Information Functional Status Date Functional Assessmen t No Information Instructions Date Instruction Additional Infor mation No Information Assessments Type Assessment Date No Information Patient Care Teams Name Effective Dates (start - stop) Status Members No Information
--- OUTSIDE RECORDS SUMMARY | 2024-12-22 07:58 | XMS_ITS | Clinical Summary ---
Author Organization [place] [address] [facility] Address [address] [place] [address] Care Team Providers Care Trackless Trolley Driver Name Role Phone Solomon Chen Primary Care Provider [phone] Allergies Active Allergy Reactions Criticality Noted Date Comments Lkkjsvq-Jpt-Twy Reductase Inhibitors Muscle pain Medium 11/05/2021 Medications [...] (11/05/2021): Added automatically from request for surgery [id number] Closed fracture of neck of right femur, initial encounter 11/05/2021 Skin tear of hand without complication 2 Acute pain due to trauma 11/05/2021 Prostate CA 11/05/2021 CAD (coronary artery disease) 11/05/2021 Immunizations Immunization Administration Dates Next Due Influenza, Trivalent, High D ose, Split, Preservative Free, Intramuscular 06/25/2017 Tdap 11/05/2021 Surgical History Surgery Date Site/Laterality Comments CORONARY ARTERY BYPASS GRAFT 09/21/2001 - 09/20/2002 CHOLECYSTECTOMY ~ 2009 UMBILICAL HERNIA REPAIR ~ 2009 CATARACT EXTRACTION, BILATERAL COLONOSCOPY ESOPHAGOGASTRODUODENOSCOPY MOHS SURGERY Left cheek TONSILLECTOMY Medical History Medical History Date Comments Arthritis Cancer (HCC) H/O coronary artery bypass surgery Postoperative delirium After CAB G, patient reports hallucinations for 24-48 hours post operatively CAD (coronary artery disease) GERD (gastroesophageal reflux disease) Prostate cancer (HCC) Hyperlipidemia Cataracts, bilateral Family History Medical History Relation Name Comments Colon cancer Brother Heart failure Father Heart attack Mother Heart disease Mother Heart disease Sister Relation Name Status Comments Brother Father Mother Sister Alive Social History Tobacco Use Types Packs/Day Years [...] on file Legal Sex Male 4:44 PM CRTT Gender Identity Not on file Sexual Orientation Not on file Obstetrics History Last Filed Vital Signs Vital Sign Reading Time Taken Comments Blood Pressure 102/60 06/09/2024 11:20 AM CDT Pulse 52 06/09/2024 11:20 AM CDT Temperature 36.6 C (97.9 F) 11/11/2021 12:43 PM CRTT Respiratory Rate 97 04/14/2023 8:54 AM CDT Oxygen Saturation 97% 06/09/2024 11:20 AM CDT Inhaled Oxygen Concentration - - Weight 84.9 kg (187 lb 1.6 oz) 06/09/2024 11:20 AM CDT Height 172.7 cm (5' 8 ) 06/09/2024 11:20 AM CDT Body Mass Index 28.45 06/09/2024 11:20 AM CDT Plan of Treatment Health Maintenance Due Date Last Done Comments Depression Screening 1938 Hepatitis B Screening 1956 Pneumococcal vaccine 65+ (1 of 2 - PCV) 1957 Zoster Vaccine (1 of 2) 1957 Well Visit 65+ 2003 Fall Risk Assessment 11/10/2022 11/10/2021 Covid-19 Vaccine ( - season) 2024 08/23/2021, 12/17/2020, 11/16/2020 Influenza Vaccine (#1) 2024 06/25/2017 DTaP/Tdap/Td Vaccine (2 - Td or Tdap) 11/05/2031 Medical Devices Implanted Type Area Pharmacist Device Identifier Shelf Expiration Date Model / Serial / Lot [employer] 6191-1-010 Simplex P Radiopaque Full Dose Cement Bone Sterile - [id number] Implanted:Qty: 2 on 11/06/2021 by Titus Obrien MD at [facility] Right: Hip [employer] [id number] 11/19/2023 6191-1-010 / / [employer] [id number] Versys 11mm Cemented Hip Distal Centralizer Stem Pmma Sterile - [id number] Implanted:Qty: 1 on 11/06/2021 by Titus Obrien MD at [facility] Right: Hip [employer] [id number] 05/16/2030 [id number] / / [id number] [employer] [id number] Versys Ld/Fx 12mm 125mm Cemented Hip 38mm Offset Stem Femoral - [id number] Implanted:Qty: 1 on 11/06/2021 by Titus Obrien MD at [facility] Right: Hip [employer] [id number] 12/18/2030 [id number] / / [id number] [employer] [id number] Versys Legacy Unipolar Hip Femoral +7mm /14 Adapter Head - [id number] Implanted:Qty: 1 on 11/06/2021 by Titus Obrien MD at [facility] Right: Hip [employer] [id number] 06/22/2031 [id number] / / [id number] [employer] [id number] Versys Legacy 51mm Unipolar Endoprosthetic Hip 12/14 Head Femoral - [id number] Implanted:Qty: 1 on 11/06/2021 by Titus Obrien MD at [facility] Right: Hip [employer] [id number] 11/18/2026 [id number] / / [id number] Insurance MEDICARE [facility] FINANCIAL MEDICARE [facility] FINANCIAL MEDICARE [employer] Advance Directives For more information, please contact: [phone] * Full Code (Latest Code Status on File) Date Activated Date Inactivated Comments 11/05/2021 8:44 PM 11/11/2021 6:24 PM Care Teams Trackless Trolley Driver Relationship Specialty Start Date End Date Solomon Chen DO PCP - General Family Medicine 09/04/22
[2024-12-22 10:31] LABS: Hematocrit 41.8 % (42.0-52.0); Hemoglobin 13.7 g/dL (14.0-18.0); Immature Platelet Fraction Pct 11.1 % (0.9-11.2); Mean Corpuscular HGB Conc 32.8 g/dl (32-36); Mean Corpuscular Hemoglobin 30.8 pg (26-34); Mean Corpuscular Volume 93.9 fl (80-100); Mean Platelet Volume 11.9 fl (7.4-10.4); Platelet Count Result 84 k/mm3 (150-375); Red Blood Count 4.45 M/mm3 (4.6-6.20); Red Cell Distribution Width 14.3 % (11.5-14.5); White Blood Count 4.6 K/mm3 (4.5-10.0)
[2024-12-22 12:04] LABS: Alanine Aminotransferase 26 U/L (6-50); Albumin Level 3.8 g/dL (3.5-5.1); Alkaline Phosphatase 69 U/L (38-126); Anion Gap 5 mmol/L (4-12); Aspartate Amino Transferase 65 U/L (17-59); Bilirubin,Total 0.9 mg/dL (0.2-1.3); Blood Urea Nitrogen 23 mg/dL (9-20); Calcium 8.8 mg/dL (8.4-10.2); Carbon Dioxide 29 mmol/L (22-30); Chloride 105 mmol/L (98-107); Cholesterol 152 mg/dL (0-200); Estimated Glomerular Filt Rate > 60; Glucose 107 mg/dL (65-110); HDL Direct 43 mg/dL; Potassium 3.8 mmol/L (3.4-5.0); Sodium 139 mmol/L (137-145); Triglycerides 259 mg/dL (<150)
[2024-12-22 12:23] LABS: LDL Cholesterol Direct < 30 mg/dL
[2024-12-22 12:36] LABS: Thyroid Stimulating Hormone 0.965 uIU/mL (0.465-4.680)
== END 2024-12-22 07:53 | disposition home or self-care (01) ==
LOC: ANHGOSHLAB 07:53
PROVIDERS: PCP Family Medicine; Visit Provider Family Medicine
DX: E78.2 Mixed hyperlipidemia (principal); I10 Essential (primary) hypertension; Z79.899 Other long term (current) drug therapy
CPT/HCPCS: 36415; 80053; 80061; 84443; 85027; 85055

== ENCOUNTER 2025-05-04 09:21 | Outpatient (CLI) | payer MEDICARE, SELFPAY ==
--- OUTSIDE RECORDS SUMMARY | 2025-05-04 09:36 | XMS_ITS ---
Author Name Auto Generated, Auto Generated Organization [facility] Address [address] [place] [address] Phone [phone] Care Team Providers Care Rock Picker Name Role Phone Jimbo Gramajo Unavailable Charles Montejo Unavailable Elbert Mckeon Unavailable [phone] Functional Status No Results Mental Status No Results Allergies and Intolerances Name Onset Date Reaction Severity Mpyyckt-DUX-SeF Reductase Inhibitors (Allergy) M on Nov 11 14:09:00 EST 2021 Encounters Program Name Primary Diagnosis Admission Date/Time Dis charge Date/Time null ThuJan 17 20:00:00 EDT 2020 Medications Medication Directions Start Date End Date abiraterone 250 mg tablet 4 TABLET Oral 1 Time Daily take 4 tabs PO early AM ThuNov 18 07:00:00 EST 2021Nov 18 15:48:00 EST 2021 abiraterone 250 mg tablet 4 TABLET Oral 1 Time Daily take 4 tabs PO early AM ThuNov 19 07:00:00 EST 2021Nov 22 01:00:00 EST 2021 omeprazole 40 mg capsule,delayed release 1 tab CAPSULE,DELAYED RELEASE (ENTERIC COATED) Oral 1 Time Daily GERD Sun Nov 17 09:00:00 EST 2021Nov 22 01:00:00 EST 2021 niacin ER 750 mg tablet,extended release 2 tablets TABLET, EXTENDED RELEASE Oral 1 Time Daily Supplement ThuNov 14 12:00:00 2021Nov 22 01:00:00 EST 2021 [place] 3-6-9 1,200 mg capsule 3 capsules CAPSULE Oral 1 Time Daily Supplement ThuNov 14 12:00:00 2021Nov 22 01:00:00 EST 2021 ergocalciferol (vitamin D2) 1,250 mcg (50,000 unit) capsule 50,000 Units CAPSULE Oral 1 Time Weekly for 12 Weeks Vitamin D deficiency ThuNov 14 12:00:00 2021Nov 22 01:00:00 EST 2021 TUBErsoL 5 tub. unit/0.1 mL intradermal injection solution 0.1 ml VIAL (ML) Intradermal 1 Time Weekly for 2 Weeks ThuNov 13 13:00:00 2021Nov 22 01:00:00 2021 TUBErsoL 5 tub. unit/0.1 mL intradermal injection solution Read Results VIAL (ML) Other 1 Time Weekly for 2 Weeks ThuNov 13 13:00:00 2021Nov 22 01:00:00 EST 2021 abiraterone 250 mg tablet 1000 mg TABLET Oral 1 Time Daily ThuNov 14 09:00:00 2021Nov 15 06:09:00 2021 Refresh Tears 0.5 % eye drops 1 gtt DROPS Both Eyes PRN Every 6 Hours Bilateral eye dryness. May keep at bedside ThuNov 12 14:28:00 2021Nov 22 01:00:00 EST 2021 Silvano 7 gram-7 gram-1.5 gram oral powder packet 1 pack POWDER IN PACKET (EA) Oral 2 Times Daily ThuNov 13 09:00:00 2021Nov 22 01:00:00 EST 2021 acetaminophen 500 mg tablet 2 tabs TABLE T Oral Every 6 Hours ThuNov 11 14:06:00 2021Nov 22 01:00:00 EST 2021 aspirin 81 mg tablet,delayed release 1 tab TABLET, DELAYED RELEASE (ENTERIC COATED) Oral 2 Times Daily ThuNov 11 14:07:00 2021Nov 22 01:00:00 EST 2021 celecoxib 200 mg capsule 1 cap CAPSULE O ral 1 Time Daily ThuNov 11 14:11:00 2021Nov 22 01:00:00 EST 2021 cyclobenzaprine 5 mg tablet 1 tab TABLET Oral 3 Times Daily ThuNov 11 14:12:00 EST 2021Nov 22 01:00:00 EST 2021 esomeprazole magnesium 20 mg capsule,delayed release 1 cap CAPSULE,DELAYED RELEASE (ENTERIC COATED) Oral 1 Time Daily Give prior to breakfast ThuNov 11 14:14:00 EST 2021 Sat b 16:21:00 EST 2021 furosemide 20 mg tablet 1 tab TABLET Ora l 1 Time Daily ThuNov 11 15:16:00 EST 2021Nov 22 01:00:00 EST 2021 melatonin 3 mg tablet 1 tab TABLET Oral 1 Time Daily dx sleep ThuNov 11 15:18:00 EST 2021Nov 22 01:00:00 EST 2021 metoprolol succinate ER 25 mg tablet,extended release 24 hr 1 tab TABLET, EXTENDED RELEASE 24 HR Oral 1 Time Daily ThuNov 11 15:20:00 EST 2021Nov 22 01:00:00 EST 2021 omeprazole 20 mg tablet,delayed release 1 tab TABLET, DELAYED RELEASE (ENTERIC COATED) Oral 1 Time Daily ThuNov 11 15:21:00 EST 2021 [facility] Nov 16 16:21:00 EST 2021 predniSONE 5 mg tablet 1 tab TABLET Oral 1 Time Daily ThuNov 11 15:22:00 EST 2021Nov 22 01:00:00 EST 2021 Restasis 0.05 % eye drops in a dropperette 1 drop DROPPERETTE, SINGLE-USE DROP DISPENSER Both Eyes 2 Times Daily ThuNov 11 15:23:00 EST 2021Nov 22 01:00:00 EST 2021 Senexon-S 8.6 mg-50 mg tablet 1 tab TABLET Oral 2 Times Daily ThuNov 11 15:24:00 EST 2021Nov 22 01:00:00 EST 2021 abiraterone 250 mg tablet 4 TABLET Oral 1 Time Daily take 4 tabs PO early AM ThuNov 11 13:00:00 EST 2021Nov 18 15:44:00 EST 2021 Problems Active Concerns * Displaced fracture of base of neck of right femur, subsequent encounter for closed fracture with routine healing* Code: * Start Date: ThuNov 11 00:00:00 EST 2021 * End Date: * Text: * Presence of right artificial hip joint* Code: * Start Date: ThuNov 11 00:00:00 EST 2021 * End Date: * Text: * Malignant neoplasm of prostate* Code: * Start Date: ThuNov 11 00:00:00 EST 2021 * End Date: * Text: * Atherosclerotic heart disease of [place] coronary artery without angina pectoris* Code: * Start Date: ThuNov 11 00:00:00 2021 * End Date: * Text: * Presence of aortocoronary bypass graft* Code: * Start Date: ThuNov 11 00:00:00 2021 * End Date: * Text: * half-way (current) use of aspirin* Code: * Start Date: ThuNov 11 00:00:00 EST 2021 * End Date: * Text: * Old myocardial infarction* Code: * Start Date: ThuNov 11 00:00:00 EST 2021 * End Date: * Text: * Primary insomnia* Code: * Start Date: ThuNov 11 00:00:00 2021 * End Date: * Text: * Gastro-esophageal reflux disease without esophagitis* Code: * Start Date: ThuNov 11 00:00:00 2021 * End Date: * Text: * Dry eye syndrome of bilateral lacrimal glands* Code: * Start Date: ThuNov 11 00:00:00 2021 * End Date: * Text: * Unspecified hearing loss, bilateral* Code: * Start Date: ThuNov 11 00:00:00 EST 2021 * End Date: * Text: * Personal history of other malignant neoplasm of skin* Code: * Start Date: ThuNov 11 00:00:00 2021 * End Date: * Text: * Essential (primary) hypertension* Code: * Start Date: ThuNov 11 00:00:00 EST 2021 * End Date: * Text: * Unspecified fall, subsequent encounter* Code: * Start Date: ThuNov 11 00:00:00 EST 2021 * End Date: * Text: Reason for Referral Past Medical History
--- OUTSIDE RECORDS SUMMARY | 2025-05-04 09:36 | XMS_ITS | Continuity of Care Document ---
Author Organization [facility] Address [address] [place] [address] [address] [place] [address] Phone Care Team Providers Care Lead Blender Name Role Phone [facility] Unavailable [...] Diagnoses Date Provider Providers Copied on Encounter [facility], [address] [place] [address] [address], [place], [place], [id number], [place] tel:[phone] [facility] No Information 0 [facility]. [address] [facility], [facility] [address], [place], [place], [id number], [place]. tel:[phone] Referring Provider: Holden Sutton, [address], [place], [address]. tel:[phone] sulting Provider: Kelsey Carrera, [address] [place], [address]. tel:[phone] [facility], [address] [facility] [address], [place], [place], [id number], [place] tel:[phone] [facility] No Information 9 Katy Hatch. [facility] [facility] [address], [place], [place], [facility][note 2], . tel:[phone] Referring Provider: Holden Sutton, [address] [place] [address] [address], [place], [place], [facility][note 2]. tel:[phone] [facility], [id number] [place] [address] [address], [place], [place], [id number], [place] tel:[phone] [facility] No Information 8 [facility]. [address] [facility], [address], [place], [place], [id number], . tel:[phone] Referring Provider: David lema, [address] [place] [address] [address], [place], [place], [facility][note 2]. tel:[phone] sulting Provider: Kesley Carrera, [address] [place], [place], [facility][note 2]. tel:[phone] [facility], [address] [place], [place] [address], [place], [place], [id number], tel:[phone] [facility] No Information 8 Ritesh Hernandez. [address] [place] [address] [address], [place], [facility][note 2], . tel:[phone] Family History Family Member Type Diagnosis Age At Onset No Information Payers Payer name Insurance type Covered libertarian ID Authoriza tion(s) No Information Social History [...]
--- OUTSIDE RECORDS SUMMARY | 2025-05-04 09:36 | XMS_ITS | Clinical Summary ---
Author Organization [place] [address] [facility] Address [address] [place] [address] Care Team Providers Care Superintendent Division Name Role Phone Mindy Hicks Primary Care Provider [phone] Allergies Active Allergy Reactions Criticality Noted Date Comments Epogova-Lxk-Xrs Reductase Inhibitors Muscle pain Medium 11/05/2021 Medications [...] mg oralAs needed, Indications: Pain, Reported on 01/17/2025 aspirin 81 mg enteric coated tablet Take [...] Take 1 tablet by mouth daily Active metoprolol XL (TOPROL-XL) 50 mg extended release tablet TAKE 1 TABLET (50 MG TOTAL) BY MOUTH DAILY 90 tablet 3 4 05/09/20 25 Active latanoprost (XALATAN) 0.005 % ophthalmic solution 4 Active isosorbide mononitrate ER (IMDUR) 60 mg 24 hr tablet TAKE ONE TABLET BY MOUTH EVERY DAY DIRECTED 90 tablet 3 5 Active Active Problems Problem Noted Date Diagnosed Date Chest pain 07/30/2023 Hx of CABG 03/04/2022 Closed fracture of neck of right femur 2 Overview (11/05/2021): Added automatically from request for surgery [id number] Closed fracture of neck of right femur, [...] on file Legal Sex Male 4:44 PM TREASURY AGENT Gender Identity Not on file Sexual Orientation Not on file Obstetrics History Last Filed Vital Signs Vital Sign Reading Time Taken Comments Blood Pressure 112/60 01/17/2025 1:12 PM CDT Pulse 69 01/17/2025 1:12 PM CDT Temperature 36.6 C (97.9 F) 11/11/2021 12:43 PM TREASURY AGENT Respiratory Rate 97 04/14/2023 8:54 AM CDT Oxygen Saturation 97% 01/17/2025 1:12 PM CDT Inhaled Oxygen Concentration - - Weight 85.5 kg (188 lb 6.4 oz) 01/17/2025 1:12 P M CDT Height 172.7 cm (5' 8) 01/17/2025 1:12 PM CDT Body Mass Index 28.65 01/17/2025 1:12 PM CDT Plan of Treatment Health Maintenance Due Date Last Done Comments Depression Screening 1940 Hepatitis B Screening 1958 Pneumococcal vaccine 65+ (1 of 2 - PCV) 1957 Zoster Vaccine (1 of 2) 1957 Well Visit 65+ 2003 Fall Risk Assessment 11/10/2022 11/10/2021 Covid-19 Vaccine ( season) 2024 08/23/2021, 12/17/2020, 11/16/2020 Influenza Vaccine (#1) 2025 06/25/2017 DTaP/Tdap/Td Vaccine (2 - Td or Tdap) 11/05/2031 Medical Devices Implanted Type Area Food And Drug Research Scientist Device Identifier Shelf Expiration Date Model / Serial / Lot [employer] 6191-1-010 Simplex P Radiopaque Full Dose Cement Bone Sterile - [id number] Implanted:Qty: 2 on 11/06/2021 by Titus Obrien MD at [facility] Right: Hip [employer] [id number] 11/19/2023 6191-1-010 / / [employer] [id number] Versys 11mm Cemented Hip Distal Centralizer Stem Pmma Sterile - [id number] Implanted:Qty: 1 on 11/06/2021 by Titus Obrien MD at [facility] Right: Hip [employer] [id number] 05/16/2030 [id number] / / [id number] [employer] [id number] Versys Ld/Fx 12mm 125mm Cemented Hip 38mm Offset Stem Femoral - [id number] Implanted:Qty: 1 on 11/06/2021 by Titus Obrien MD at [facility] Right: Hip [employer] [id number] 12/18/2030 [id number] / / [id number] [employer] [id number] Versys Legacy Unipolar Hip Femoral +7mm 12/14 Adapter Head - [id number] Implanted:Qty: 1 on 11/06/2021 by Titus Obrien MD at [facility] Right: Hip [employer] [id number] 06/22/2031 [id number] / / [id number] [employer] [id number] Versys Legacy 51mm Unipolar Endoprosthetic Hip 12/14 Head Femoral - [id number] Implanted:Qty: 1 on 11/06/2021 by Titus Obrien MD at [facility] Right: Hip [employer] [id number] 11/18/2026 [id number] / / [id number] Insurance MEDICARE [facility] FINANCIAL MEDICARE [facility] FINANCIAL MEDICARE [employer] Advance Directives For more information, please contact: [phone] * Full Code (Latest Code Status on File) Date Activated Date Inactivated Comments 11/05/2021 8:44 PM 11/11/2021 6:24 PM Care Teams Superintendent Division Relationship Specialty Start Date End Date Mindy Hicks DO [facility] [address] [address] PCP - General Family Medicine 01/17/25
--- OUTSIDE RECORDS SUMMARY | 2025-05-04 09:36 | XMS_ITS ---
Author Name Auto Generated, Auto Generated Organization [facility] [facility] Address [address] [place] [address] Phone [phone] Care Team Providers Care Custodian Supervisor Name Role Phone Jimbo Gramajo Unavailable Charles Montejo Unavailable Elbert Mckeon Unavailable [phone] Functional Status No Results Mental Status No Results Allergies and Intolerances Name Onset Date Reaction Severity Fjvomew-TZH-IlD Reductase Inhibitors (Allergy) M on Nov 11 [...] 14 12:00:00 2021Nov 22 01:00:00 EST 2021 [place] 3-6-9 1,200 mg capsule 3 capsules CAPSULE [...] Time Daily ThuNov 11 15:21:00 EST 2021 [facility] Nov 16 16:21:00 EST 2021 predniSONE 5 [...] * Text: * Atherosclerotic heart disease of [place] coronary artery without angina pectoris* Code: * Start Date: ThuNov 11 00:00:00 2021 * End Date: * Text: * Presence of aortocoronary bypass graft* Code: * Start Date: ThuNov 11 00:00:00 2021 * End Date: * Text: * [facility] (current) use of aspirin* Code: * Start [...]
--- OUTSIDE RECORDS SUMMARY | 2025-05-04 09:36 | XMS_ITS | Clinical Summary ---
Author Organization [facility] Address [address] [place] [address] Care Team Providers Care Unemployment Insurance Hearing Officer Name Role Phone Unavailable Primary Care Provider [...] Td Vaccines ( 1 - Tdap) 1957 Pneumococcal Vaccine: 50+ Ye ars (1 of 1 - PCV) 1988 Zoster Vaccines (1 of 2) 1988 RSV Immunization or 60+ Years (1 - 1-dose 75+ series) 2013 COVID-19 Vaccine ( - 2023-2 5 season) 2024 Meningococcal B Vaccine Aged Out No l onger eligible based on patient's age to complete this topic Meningococcal Vaccine Aged Out No ansley fiordaliza eligible based on patient's age to complete this topic RSV Immunizations Under 20 Months Aged Out No longer eligible based on patient's age to complete this topic
[2025-05-04 11:23] LABS: Hematocrit 43.5 % (42.0-52.0); Hemoglobin 14.1 g/dL (14.0-18.0); Immature Platelet Fraction Pct 9.9 % (0.9-11.2); Mean Corpuscular HGB Conc 32.4 g/dl (32-36); Mean Corpuscular Hemoglobin 30.7 pg (26-34); Mean Corpuscular Volume 94.6 fl (80-100); Platelet Count Result 81 k/mm3 (150-375); Red Blood Count 4.60 M/mm3 (4.6-6.20); White Blood Count 3.7 K/mm3 (4.5-10.0)
[2025-05-04 11:39] LABS: Alanine Aminotransferase 27 U/L (6-50); Albumin Level 4.2 g/dL (3.5-5.1); Alkaline Phosphatase 70 U/L (38-126); Anion Gap 8 mmol/L (4-12); Aspartate Amino Transferase 41 U/L (17-59); Bilirubin,Total 1.1 mg/dL (0.2-1.3); Blood Urea Nitrogen 23 mg/dL (9-20); Calcium 9.0 mg/dL (8.4-10.2); Carbon Dioxide 28 mmol/L (22-30); Chloride 106 mmol/L (98-107); Cholesterol 162 mg/dL (0-200); Estimated Glomerular Filt Rate > 60; Glucose 106 mg/dL (65-110); HDL Direct 46 mg/dL; Potassium 3.8 mmol/L (3.4-5.0); Sodium 142 mmol/L (137-145); Total Protein 6.8 g/dL (6.3-8.2); Triglycerides 214 mg/dL (<150)
[2025-05-04 12:10] LABS: Thyroid Stimulating Hormone 0.975 uIU/mL (0.465-4.680)
== END 2025-05-04 09:22 | disposition home or self-care (01) ==
LOC: ANHGOSHLAB 09:22
PROVIDERS: PCP Family Medicine; Visit Provider Family Medicine
DX: E78.5 Hyperlipidemia, unspecified (principal); Z79.899 Other long term (current) drug therapy; I10 Essential (primary) hypertension
CPT/HCPCS: 36415; 80053; 80061; 84443; 85027; 85055